=== PATIENT | male | born 1985 | race Caucasian/White ===

== ENCOUNTER 2016-12-18 17:48 | Emergency (ER) | payer OTHER ==
[2016-12-18 18:16] VITALS: BP 126/59; PULSE 70; RESP 18; TEMP 97
--- NOTE | 2016-12-18 19:38 | US ---
EXAMINATION TYPE: US venous doppler duplex LE LT DATE OF EXAM: 12/18/2016 7:23 PM COMPARISON: NONE CLINICAL HISTORY: Pain in left leg. Palpable lump on left lateral ankle SIDE PERFORMED: Left VESSELS IMAGED: External Iliac Vein (EIV) Common Femoral Vein Deep Femoral Vein Greater Saphenous Vein * Femoral Vein Popliteal Vein Small Saphenous Vein * Proximal Calf Veins (* superficial vessels) TECHNOLOGIST IMPRESSION: No evidence of deep venous thrombosis. There is no discrete sonographic abn ormality seen in the area of the palpable lump. Left Leg: Negative for DVT No abnormality visualized at the patient's area of concern IMPRESSION:
--- NOTE | 2016-12-18 19:49 | ED ---
General Adult HPI - General Chief complaint: Extremity Problem,Nontraumatic Stated complaint: POSS BLOOD CLOT LEFT LEG Time Seen by Provider: 12/18/16 18:50 Source: family, RN notes reviewed Mode of arrival: wheelchair Limitations: altered mental status, physical limitation - History of Present Illness Initial comments: This is a 31-year-old male who is brought in by mother for left calf tenderness 5-6 days. Mother states the patient has a history of Down syndrome and lives at a long-term who stated the patient needed extra help to get up the stairs due to left leg pain. Mother denies any reported injury to the left leg and she also states that the long-term denied any left leg injury. Mother denies any complaints of left leg numbness or tingling. Mother states the patient has been ambulating. Mother states the patient has already seen his primary care physician for this and at this time x-rays were obtained and came back negative for fracture. Mother states she has noticed that the patient is walking with less pain over the last couple of days but mother was concerned about blood clot. Mother denies that the patient has any history of blood clots. Patient is not a smoker.Patient denies any recent fever, chills, shortness breath, chest pain, abdominal pain, nausea/vomiting/diarrhea, back pain, numbness, tingling, hematuria, headache, or visual changes, or any other complaints. - Related Data Home Medications Medication Instructions Recorded Confirmed Cetirizine HCl [Zyrtec] 5 mg PO DAILY 12/18/16 12/18/16 Montelukast [Singulair] 10 mg PO DAILY 12/18/16 12/18/16 risperiDONE 0.25 mg PO 12/18/16 Allergies Allergy/AdvReac Type Severity Reaction Status Date / Time No Known Allergies Allergy Verified 12/18/16 18:16 Review of Systems ROS Statement: Those systems with pertinent positive or pertinent negative responses have been documented in the HPI. ROS Other: All systems not noted in ROS Statement are negative. Past Medical History Additional Past Medical History / Comment(s): DOWN SYNDROME, MITRAL VALVE LEAK, AUTISM History of Any Multi-Drug Resistant Organisms: None Reported Past Surgical History: Adenoidectomy, Cardiac Valve Replacement, Tonsillectomy Past Psychological History: Anxiety Smoking Status: Never smoker Past Alcohol Use History: None Reported Past Drug Use History: None Reported General Exam - General Exam Comments Initial Comments: General: The patient is awake and alert, in no distress, and does not appear acutely ill. Neck: The neck is supple, there is no tenderness or JVD. Cardiovascular: There is a regular rate and rhythm. No murmur, rub or gallop is appreciated. Respiratory: Lungs are clear to auscultation, respirations are non-labored, breath sounds are equal. No wheezes, stridor, rales, or rhonchi. Musculoskeletal: There is no apparent tenderness of the left lower extremity. There is no unilateral leg swelling, erythema or ecchymosis. Patient has full range of motion, strength 5/5 and Sensation intact. Patient is ambulatory in the EC. Dorsalis pedis and posterior tibial pulses are 2+ bilaterally. Capillary refill is normal at less than 2 seconds. Neurological: A&O x 3. CN II-XII intact, There are no obvious motor or sensory deficits. Coordination appears grossly intact. Speech is normal. Skin: Skin is warm and dry and no rashes or lesions are noted. Psychiatric: Normal mood and affect. Limitations: altered mental status, physical limitation Course Vital Signs 12/18/16 18:08 Temperature 97 F L Pulse Rate 70 Respiratory 18 Rate Blood Pressure 126/59 O2 Sat by Pulse 99 Oximetry Medical Decision Making - Medical Decision Making This is a 31-year-old male who is brought in by mother for concerns of blood clot. On physical exam there is no apparent tenderness of the left lower extremity. There is no unilateral leg swelling, erythema or ecchymosis. Patient has full range of motion, strength 5/5 and Sensation intact. Patient is ambulatory in the EC. Dorsalis pedis and posterior tibial pulses are 2+ bilaterally. Capillary refill is normal at less than 2 seconds. A Doppler of the left lower extremity was done and reviewed showing: Negative for DVT. No abnormality visualized at the patient's area of concern. Report read by Dr. Brock. I discussed the results with mother and the patient. Discussed rest , ice, elevate and Tylenol and Motrin for pain. I discussed return parameters and occult fracture. Discussed that patient should follow up with PCP in one to 2 days or return to the EC for any worsening symptoms or for any further concerns. Patient and parent were receptive to this plan and patient will be discharged home. Disposition Clinical Impression: Left leg pain Disposition: HOME SELF-CARE Condition: Good Instructions: Leg Pain (ED) Additional Instructions: Please rest, ice, elevate and use Tylenol or Motrin for pain.If symptoms do not improve in the next 7 days repeat x-rays may be needed to rule out occult fracture. Please follow-up with family doctor in the next 2 days of symptoms have not improved. Please return to emergency room if the symptoms increase or worsen or for any other concerns. Referrals: Javier Gonzales MD [Primary Care Provider] - 1-2 days Time of Disposition: 19:51
== END 2016-12-18 20:05 | disposition home or self-care (01) ==
LOC: EC 17:48
DX: M79.662 Pain in left lower leg (principal); Q90.9 Down syndrome, unspecified; F84.0 Autistic disorder; F41.9 Anxiety disorder, unspecified; Z95.2 Presence of prosthetic heart valve; Z79.899 Other long term (current) drug therapy
CPT/HCPCS: 99283

== ENCOUNTER → 2018-04-29 | Outpatient (CLI) | payer MEDICARE, OTHER ==
--- NOTE | 2018-04-29 12:10 | FL ---
EXAMINATION TYPE: FL barium swallow w video DATE OF EXAM: 04/29/2018 MODIFIED SWALLOW / DEGLUTITION STUDY CLINICAL HISTORY: Dysphagia. History of autism and Down syndrome. TECHNIQUE: Deglutition study is performed utilizing thin liquid barium, honey and nectar thick liqui d barium, barium thick applesauce, and barium coated cracker. Approximately 10 cine sequences were ac quired. A total of 55 seconds of fluoroscopic time was utilized during procedure. COMPARISON: None. FINDINGS: The oral and pharyngeal phases show satisfactory initiation and propagation with all modali ties tested. Satisfactory mastication is seen with solid modalities tested. There is no evidence of penetration or aspiration with any modality tested. No significant pharyngeal residue was appreciate d. Incidental note is made of large prominent anterior osteophytes in the visualized upper to mid cer vical spine. IMPRESSION: No penetration or aspiration observed. Please refer to speech therapist notes for further details if necessary.
== END ==
LOC: RADFLMAIN 10:46
PROVIDERS: ATTEND Family Medicine
DX: R13.19 Other dysphagia (principal)
CPT/HCPCS: 74230

== ENCOUNTER 2025-04-24 13:01 | Emergency (ER) | payer MEDICARE, OTHER ==
[2025-04-24 13:13] VITALS: BP 132/75; PULSE 90; RESP 20; TEMP 97.9
--- NOTE | 2025-04-24 13:44 | XR ---
EXAMINATION TYPE: XR ankle complete LT DATE OF EXAM: 04/24/2025 1:36 PM COMPARISON: None. CLINICAL INDICATION: Male, 39 years old with history of Injury, TECHNIQUE: XR ankle complete LT, views submitted for evaluation. FINDINGS: There is no evidence for fracture or dislocation. The joint spaces appear within normal limits. The overlying soft tissue appears unremarkable. Ankle mortise is intact. Soft tissues are within normal l imits. IMPRESSION: 1. No evidence for acute fracture. [facility], , 04/24/2025 1:42 PM
--- NOTE | 2025-04-24 13:46 | XR ---
EXAMINATION TYPE: XR foot complete LT DATE OF EXAM: 04/24/2025 1:36 PM COMPARISON: None. CLINICAL INDICATION: Male, 39 years old with history of Injury, pain TECHNIQUE: Frontal, lateral, and oblique images of the left foot are obtained. FINDINGS: There is no acute fracture/dislocation evident in the left foot. The joint spaces in the left foot appear within normal limits. Dorsal soft tissue noted. IMPRESSION: There is no acute fracture or dislocation in the left foot. [facility], , 04/24/2025 1:43 PM
--- NOTE | 2025-04-24 15:14 | ED ---
General Adult HPI - General Chief complaint: Extremity Injury, Lower Stated complaint: L ankle injury Time Seen by Provider: 04/24/25 15:00 Source: patient, family, RN notes reviewed, old records reviewed Mode of arrival: wheelchair Limitations: altered mental status - History of Present Illness Initial comments: 39-year-old male with history of Down syndrome presents for reevaluation for left ankle pain. Apparently patient injured his left ankle sometime last week and was evaluated. Told it was a sprain at that time but no x-rays were done. Brought back in by sister over concern for possible injury. He is having pain with ambulation but not given any meds. No other injuries. Otherwise acting normally. Presents for further evaluation. Does have a boot at home. - Related Data Home Medications Medication Instructions Recorded Confirmed Cetirizine HCl [Zyrtec] 5 mg PO DAILY 12/18/16 12/18/16 Montelukast [Singulair] 10 mg PO DAILY 12/18/16 12/18/16 risperiDONE 0.25 mg PO 12/18/16 Allergies Allergy/AdvReac Type Severity Reaction Status Date / Time No Known Allergies Allergy Verified 04/24/25 13:13 Review of Systems ROS Statement: Those systems with pertinent positive or pertinent negative responses have been documented in the HPI. Review of Systems: CONST: Denies fever EYES: Denies blurry vision ENT: Denies nasal congestion C/V: Denies Chest pain RESP: Denies shortness of breath GI: Denies abdominal pain : Denies dysuria SKIN: Denies rash. MSK: Endorses left ankle pain NEURO: Denies headache ROS Other: All systems not noted in ROS Statement are negative. Past Medical History Additional Past Medical History / Comment(s): DOWN SYNDROME, MITRAL VALVE LEAK, AUTISM History of Any Multi-Drug Resistant Organisms: None Reported Past Surgical History: Adenoidectomy, Cardiac Valve Replacement, Tonsillectomy Past Psychological History: Anxiety Smoking Status: Never smoker Past Alcohol Use History: None Reported Past Drug Use History: None Reported General Exam - General Exam Comments Initial Comments: General: Appears in no acute distress. HEAD: Normal with no signs of head trauma. EYES: EOMI. ENT: Hearing grossly intact. RESPIRATORY: No respiratory distress. C/V: Regular rate and rhythm. ABD: Abdomen is nondistended. EXT: Mild left ankle edema. No obvious deformity. Normal range of motion as far as I can tell. Neurovascular intact throughout the left lower extremity. No skin changes. SKIN: No rashes or lesions observed on exposed skin. NEURO: Alert and oriented. Limitations: altered mental status Course Vital Signs 04/24/25 13:10 Temperature 97.9 F Pulse Rate 90 Respiratory 20 Rate Blood Pressure 132/75 O2 Sat by Pulse 99 Oximetry Medical Decision Making - Medical Decision Making Was pt. sent in by a medical professional or institution (, PRAKASH, CYCLE SPECIALIST, urgent care, hospital, or halfway...) When possible be specific @ -No Did you speak to anyone other than the patient for history (EMS, parent, family, police, friend...)? What history was obtained from this source @ -Patient's sister is the primary historian for the patient Did you review nursing and triage notes (agree or disagree)? Why? @ -I reviewed and agree with nursing and triage notes Were old charts reviewed (outside hosp., previous admission, EMS record, old EKG, old radiological studies, urgent care reports/EKG's, halfway records)? Report findings @ -No old charts were reviewed Differential Diagnosis (chest pain, altered mental status, abdominal pain women, abdominal pain men, vaginal bleeding, weakness, fever, dyspnea, syncope, headache, dizziness, GI bleed, back pain, seizure, CVA, palpatations, mental health, musculoskeletal)? @ -Ankle sprain, ankle fracture, foot fracture. This list is not all inclusive. EKG interpreted by me (3pts min.). @ -None none X-rays interpreted by me (1pt min.). @ -Foot and ankle x-ray negative for any obvious acute traumatic injury. CT interpreted by me (1pt min.). @ -None done U/S interpreted by me (1pt. min.). @ -None done What testing was considered but not performed or refused? (CT, X-rays, U/S, labs)? Why? @ -None What meds were considered but not given or refused? Why? @ -None Did you discuss the management of the patient with other professionals (professionals i.e. , PRAKASH, CYCLE SPECIALIST, lab, RT, psych nurse, social contact worker, enterer, teacher, retail loan officer, piano case and bench assembler)? Give summary @ -No Was smoking cessation discussed for >3mins.? @ -No Was critical care preformed (if so, how long)? @ -No Were there social determinants of health that impacted care today? How? (Homelessness, low income, unemployed, alcoholism, drug addiction, transportation, low edu. Level, literacy, decrease access to med. care, skilled nursing, rehab)? @ -No Was there de-escalation of care discussed even if they declined (Discuss DNR or withdrawal of care, Hospice)? DNR status @ -No What co-morbidities impacted this encounter? (DM, HTN, Smoking, COPD, CAD, Cancer, CVA, ARF, Chemo, Hep., AIDS, mental health diagnosis, sleep apnea, morbid obesity)? @ -None Was patient admitted / discharged? Hospital course, mention meds given and route, prescriptions, significant lab abnormalities, going to OR and other pertinent info. @ -Patient presents with left foot and ankle pain. Told it was a sprain but no imaging was obtained. Has been ongoing for at least 3 days. Presents with his sister. Vitals within acceptable limits. Exam unremarkable except for mild edema. We will obtain x-rays. X-rays obtained in the waiting room and I evaluated patient after he was placed in fast-track. X-rays negative for any obvious acute traumatic injury. Discussed with patient's sister. He will be discharged home at this time. Instructed use [id number] analgesia medications as needed as well as continued use of the boot as needed. They were in agreement this plan. Strict return precautions discussed. I instructed the patient to follow up with their PCP in the next 1-3 days. I explained that the patient should return to the emergency department if they experience any worsening symptoms. Strict return precautions were discussed with the patient. The patient expressed understanding of these instructions. I answered all questions that the patient had. The patient was discharged home in good condition with their prescriptions and follow up information. Undiagnosed new problem with uncertain prognosis? @ -No Drug Therapy requiring intensive monitoring for toxicity (Heparin, Nitro, Insulin, Cardizem)? @ -No Were any procedures done? @ -No Diagnosis/symptom? @ -Left ankle sprain Acute, or Chronic, or Acute on Chronic? @ -Acute Uncomplicated (without systemic symptoms) or Complicated (systemic symptoms)? @ -Uncomplicated Side effects of treatment? @ -No Exacerbation, Progression, or Severe Exacerbation? @ -No Poses a threat to life or bodily function? How? (Chest pain, [place], [place], pneumonia, PE, COPD, DKA, ARF, appy, cholecystitis, CVA, Diverticulitis, Homicidal, Suicidal, threat to staff... and all critical care pts) @ -Unlikely at this time Disposition Clinical Impression: Left ankle sprain Disposition: HOME SELF-CARE Condition: Good Instructions (If sedation given, give patient instructions): Ankle Sprain (ED) Is patient prescribed a controlled substance at d/c from ED?: No Referrals: [facility] MD [Primary Care Provider] - 1-2 days Time of Disposition: 15:14
== END 2025-04-24 15:26 | disposition home or self-care (01) ==
LOC: EC 13:01
DX: S93.402A Sprain of unspecified ligament of left ankle, initial encounter (principal); Q90.9 Down syndrome, unspecified; X58.XXXA Exposure to other specified factors, initial encounter
CPT/HCPCS: 99283